=== PATIENT | female | born 1975 | race Caucasian/White ===

== ENCOUNTER → 2019-06-19 | Outpatient (CLI) | payer BC ==
[2004-09-13 21:45] VITALS: TEMP 97.5
[~2019-06-19] MED LIST: PRENATAL1 TA1 PO; VALTREX500 MG PO
== END ==
LOC: MC.RAD 14:48
DX: Z12.31 Encounter for screening mammogram for malignant neoplasm of breast (principal)

== ENCOUNTER → 2021-06-14 | Outpatient (CLI) | payer BC ==
[2004-09-13 21:45] VITALS: TEMP 97.5
== END ==
LOC: MC.RAD 11:21
DX: Z12.31 Encounter for screening mammogram for malignant neoplasm of breast (principal)

== ENCOUNTER → 2024-05-13 | Outpatient (CLI) | payer BC ==
[2004-09-13 21:45] VITALS: PULSE 78; TEMP 97.5
== END ==
LOC: MC.RAD 13:24
DX: Z12.31 Encounter for screening mammogram for malignant neoplasm of breast (principal)